=== PATIENT | male | born 1965 | race Caucasian/White ===

== ENCOUNTER 2019-02-03 16:10 | Inpatient (IN) | payer OTHER ==
[2019-02-03 22:27] LABS: ADD MAN DIFF? NO
[2019-02-03] MEDS: VANCOMYCIN 1 GM (PMX) 250 ML IVPB (22:30)
[2019-02-03 22:32] LABS: BASOPHIL # 0.1 10^3/ul (0.0-0.1); BASOPHILS % 0.6 % (0.0-2.0); EOSINOPHILS # 0.3 10^3/ul (0.0-0.5); EOSINOPHILS % 3.3 % (0.0-7.0); HEMATOCRIT 43.8 % (42.0-52.0); LYMPHOCYTES # 1.8 10^3/ul (0.8-2.9); LYMPHOCYTES % 20.8 % (15.0-51.0); MEAN CORPUSCULAR HEMOGLOBIN 28.2 pg (29.0-33.0); MEAN CORPUSCULAR VOLUME 88.1 fl (82.0-101.0); MEAN PLATELET VOLUME 10.7 fl (7.4-10.4); MONOCYTE # 0.8 10^3/ul (0.3-0.9); MONOCYTES % 9.2 % (0.0-11.0); NEUTROPHIL # 5.6 10^3/ul (1.6-7.5); NEUTROPHILS % 64.9 % (39.0-77.0); PLATELET COUNT 196 10^3/UL (140-415); RED BLOOD COUNT 4.97 10^6/ul (4.70-6.10); RED CELL DISTRIBUTION WIDTH 13.4 % (11.5-14.5)
[2019-02-03 22:32] LABS: WHITE BLOOD COUNT 8.6 10^3/ul (4.8-10.8)
[2019-02-03] MEDS: CEFEPIME 2GM/50 ML (PMX) 50 ML IVPB (22:48)
[2019-02-03] MEDS: SODIUM CHLORIDE 0.9% 1L BAG IV* (22:48)
[2019-02-03 22:52] LABS: LACTIC ACID 1.3 mmol/L (0.5-2.0)
[2019-02-03 22:53] LABS: ANION GAP 14 (5-13); BLOOD UREA NITROGEN 26 mg/dl (7-20); CALCIUM 9.9 mg/dl (8.4-10.2); CARBON DIOXIDE 26 mmol/L (21-31); CHLORIDE 101 mmol/L (97-110); CREATININE 0.99 mg/dl (0.61-1.24); Estimated GFR > 60 mL/min (>60); GLUCOSE 121 mg/dl (70-220); POTASSIUM 4.1 mmol/L (3.5-5.1); SODIUM 141 mmol/L (135-144)
[2019-02-03] MEDS ORDERED: ACETAMINOPHEN 325 MG TAB PO (23:00)
[2019-02-03] MEDS ORDERED: ONDANSETRON 4 MG INJ IV (23:00)
[2019-02-03 23:09] LABS: C-REACTIVE PROTEIN 2.1 mg/dl (0.0-0.9)
[2019-02-03 23:35] LABS: ERYTHROCYTE SEDIMENTATION RATE 20 mm/Hr (0-20)
[2019-02-04] MEDS ORDERED: HYDROCODONE/APAP (5/325) TAB PO ×2
[2019-02-04] MEDS ORDERED: NACL 0.9% 3 ML SYG IV
[2019-02-04 02:25] LABS: LACTIC ACID 0.8 mmol/L (0.5-2.0)
[2019-02-04 06:05] LABS: ADD MAN DIFF? NO
[2019-02-04 06:12] LABS: WHITE BLOOD COUNT 8.2 10^3/ul (4.8-10.8)
[2019-02-04 06:12] LABS: BASOPHILS % 0.4 % (0.0-2.0); EOSINOPHILS # 0.4 10^3/ul (0.0-0.5); EOSINOPHILS % 4.6 % (0.0-7.0); HEMATOCRIT 39.6 % (42.0-52.0); HEMOGLOBIN 12.7 g/dl (14.0-18.0); LYMPHOCYTES # 1.7 10^3/ul (0.8-2.9); LYMPHOCYTES % 20.1 % (15.0-51.0); MEAN CORPUSCULAR HEMOGLOBIN 28.5 pg (29.0-33.0); MEAN CORPUSCULAR HGB CONC 32.1 g/dl (32.0-37.0); MEAN PLATELET VOLUME 10.6 fl (7.4-10.4); MONOCYTE # 0.8 10^3/ul (0.3-0.9); NEUTROPHIL # 5.2 10^3/ul (1.6-7.5); NEUTROPHILS % 63.7 % (39.0-77.0); PLATELET COUNT 172 10^3/UL (140-415); RED BLOOD COUNT 4.45 10^6/ul (4.70-6.10); RED CELL DISTRIBUTION WIDTH 13.5 % (11.5-14.5)
[2019-02-04 06:56] LABS: HEMOGLOBIN A1C 6.1 % (0-5.9)
[2019-02-04 07:41] LABS: ALANINE AMINOTRANSFERASE 17 IU/L (13-69); ALBUMIN 3.6 g/dl (3.3-4.9); ALBUMIN/GLOBULIN RATIO 1.24; ALKALINE PHOSPHATASE 55 IU/L (42-121); ANION GAP 9 (5-13); ASPARTATE AMINO TRANSFERASE 21 IU/L (15-46); BILIRUBIN,INDIRECT 0.6 mg/dl (0-1.1); BILIRUBIN,TOTAL 0.6 mg/dl (0.2-1.3); BLOOD UREA NITROGEN 25 mg/dl (7-20); CALCIUM 8.8 mg/dl (8.4-10.2); CARBON DIOXIDE 25 mmol/L (21-31); CHLORIDE 107 mmol/L (97-110); CHOL/HDL RATIO 4.6 RATIO; CHOLESTEROL 153 mg/dl (100-200); CREATININE 0.97 mg/dl (0.61-1.24); Estimated GFR > 60 mL/min (>60); GLUCOSE 115 mg/dl (70-220); HDL CHOLESTEROL 33 mg/dl (28-71); LDL CHOLESTEROL,CALCULATED 104 mg/dl; MAGNESIUM 2.1 mg/dl (1.7-2.5); PHOSPHORUS 3.7 mg/dl (2.5-4.9); POTASSIUM 4.2 mmol/L (3.5-5.1); SODIUM 141 mmol/L (135-144); TOTAL PROTEIN 6.5 g/dl (6.1-8.1); TRIGLYCERIDES 82 mg/dl (0-149)
[2019-02-04] MEDS: ZINC SULFATE 220 MG CAP PO (08:20)
[2019-02-04] MEDS: ASPIRIN (EC) 81 MG TAB PO (08:20)
[2019-02-04] MEDS: SERTRALINE 50 MG TAB PO (08:20)
[2019-02-04] MEDS: HEPARIN 5,000 UNIT/1 ML VIAL SC (08:20)
[2019-02-04] MEDS: LISINOPRIL 20 MG TAB PO (08:20)
[2019-02-04] MEDS: CHOLECALCIFEROL 1,000 UNIT TAB PO (08:20)
[2019-02-04] MEDS: FUROSEMIDE 20 MG TAB PO (08:21)
[2019-02-04] MEDS: POTASSIUM CHLORIDE (SR) 8 MEQ CAP PO (09:17)
[2019-02-04] MEDS ORDERED: VANCOMYCIN IV PER PHARMACY XX (09:30)
[2019-02-04] MEDS: CEFEPIME 1GM/50 ML (PMX) 50 ML IVPB ×2 (10:07→20:46)
[2019-02-04] MEDS: VANCOMYCIN HCL 2 GM in SOD CHLORIDE 0.9% 500 ML IVPB (12:03)
[2019-02-04] MEDS: APIXABAN 5 MG TABLET PO (20:46)
[2019-02-05] MEDS: VANCOMYCIN HCL 1.5 GM in SOD CHLORIDE 0.9% 250 ML IVPB ×2 (00:07→12:29)
[2019-02-05 05:56] LABS: ADD MAN DIFF? NO
[2019-02-05 06:03] LABS: BASOPHIL # 0.1 10^3/ul (0.0-0.1); BASOPHILS % 0.7 % (0.0-2.0); EOSINOPHILS # 0.5 10^3/ul (0.0-0.5); EOSINOPHILS % 6.3 % (0.0-7.0); HEMATOCRIT 41.2 % (42.0-52.0); HEMOGLOBIN 13.2 g/dl (14.0-18.0); LYMPHOCYTES # 1.8 10^3/ul (0.8-2.9); LYMPHOCYTES % 23.8 % (15.0-51.0); MEAN CORPUSCULAR HEMOGLOBIN 28.5 pg (29.0-33.0); MEAN PLATELET VOLUME 10.9 fl (7.4-10.4); MONOCYTE # 0.6 10^3/ul (0.3-0.9); MONOCYTES % 8.4 % (0.0-11.0); NEUTROPHIL # 4.5 10^3/ul (1.6-7.5); NEUTROPHILS % 59.9 % (39.0-77.0); PLATELET COUNT 176 10^3/UL (140-415); RED BLOOD COUNT 4.63 10^6/ul (4.70-6.10); RED CELL DISTRIBUTION WIDTH 13.5 % (11.5-14.5)
[2019-02-05 06:03] LABS: WHITE BLOOD COUNT 7.6 10^3/ul (4.8-10.8)
[2019-02-05 06:20] LABS: ANION GAP 9 (5-13); BLOOD UREA NITROGEN 21 mg/dl (7-20); CALCIUM 9.3 mg/dl (8.4-10.2); CARBON DIOXIDE 26 mmol/L (21-31); CHLORIDE 107 mmol/L (97-110); CREATININE 0.92 mg/dl (0.61-1.24); Estimated GFR > 60 mL/min (>60); GLUCOSE 102 mg/dl (70-220); POTASSIUM 4.4 mmol/L (3.5-5.1); SODIUM 142 mmol/L (135-144)
[2019-02-05] MEDS: SERTRALINE 50 MG TAB PO (09:03)
[2019-02-05] MEDS: ASPIRIN (EC) 81 MG TAB PO (09:03)
[2019-02-05] MEDS: ZINC SULFATE 220 MG CAP PO (09:03)
[2019-02-05] MEDS: CHOLECALCIFEROL 1,000 UNIT TAB PO (09:03)
[2019-02-05] MEDS: APIXABAN 5 MG TABLET PO ×2 (09:03→21:22)
[2019-02-05] MEDS: LISINOPRIL 20 MG TAB PO (09:04)
[2019-02-05] MEDS: POTASSIUM CHLORIDE (SR) 8 MEQ CAP PO (09:04)
[2019-02-05] MEDS: FUROSEMIDE 20 MG TAB PO (09:04)
[2019-02-05] MEDS: CEFEPIME 1GM/50 ML (PMX) 50 ML IVPB ×2 (10:57→21:22)
[2019-02-05] MEDS: ONDANSETRON 4 MG INJ IV (12:32)
[2019-02-05] MEDS: ACETAMINOPHEN 325 MG TAB PO (22:17)
[2019-02-06] MEDS: VANCOMYCIN HCL 1.5 GM in SOD CHLORIDE 0.9% 250 ML IVPB ×2 (00:35→11:49)
[2019-02-06] MEDS: ONDANSETRON 4 MG INJ IV ×2 (00:38→11:52)
[2019-02-06] MEDS: CEFEPIME 1GM/50 ML (PMX) 50 ML IVPB (08:29)
[2019-02-06] MEDS: APIXABAN 5 MG TABLET PO (08:29)
[2019-02-06] MEDS: ZINC SULFATE 220 MG CAP PO (08:29)
[2019-02-06] MEDS: CHOLECALCIFEROL 1,000 UNIT TAB PO (08:29)
[2019-02-06] MEDS: ASPIRIN (EC) 81 MG TAB PO (08:30)
[2019-02-06] MEDS: FUROSEMIDE 20 MG TAB PO (08:31)
[2019-02-06] MEDS: POTASSIUM CHLORIDE (SR) 8 MEQ CAP PO (08:31)
[2019-02-06] MEDS: SERTRALINE 50 MG TAB PO (08:32)
[2019-02-06] MEDS: LISINOPRIL 20 MG TAB PO (08:32)
== END 2019-02-06 17:40 | disposition home health service (06) | DRG 603 ==
LOC: PP2 22:59 → E/R 16:10
DX: L03.115 Cellulitis of right lower limb (principal); Z68.42 Body mass index [BMI] 45.0-49.9, adult; I82.431 Acute embolism and thrombosis of right popliteal vein; E66.01 Morbid (severe) obesity due to excess calories; L97.519 Non-pressure chronic ulcer of other part of right foot with unspecified severity; I87.2 Venous insufficiency (chronic) (peripheral); M1A.9XX0 Chronic gout, unspecified, without tophus (tophi); I10 Essential (primary) hypertension; F32.9 Major depressive disorder, single episode, unspecified; F41.9 Anxiety disorder, unspecified; Z79.82 Long term (current) use of aspirin
CPT/HCPCS: 36415; 80048; 80053; 80061; 80202; 83036; 83605; 83735; 84100; 85025; 85651; 86140; 87040; 93005; 93971; 96374; 96375; 99285-25

== ENCOUNTER 2019-02-25 19:22 | Emergency (ER) | payer OTHER ==
[2019-02-25 20:20] LABS: ADD MAN DIFF? NO
[2019-02-25 20:22] LABS: BASOPHILS % 0.5 % (0.0-2.0); EOSINOPHILS # 0.4 10^3/ul (0.0-0.5); EOSINOPHILS % 5.4 % (0.0-7.0); HEMATOCRIT 41.4 % (42.0-52.0); HEMOGLOBIN 13.3 g/dl (14.0-18.0); LYMPHOCYTES # 1.5 10^3/ul (0.8-2.9); LYMPHOCYTES % 19.4 % (15.0-51.0); MEAN CORPUSCULAR HEMOGLOBIN 28.6 pg (29.0-33.0); MEAN CORPUSCULAR HGB CONC 32.1 g/dl (32.0-37.0); MEAN PLATELET VOLUME 10.9 fl (7.4-10.4); MONOCYTE # 0.8 10^3/ul (0.3-0.9); MONOCYTES % 9.7 % (0.0-11.0); NEUTROPHILS % 64.2 % (39.0-77.0); PLATELET COUNT 177 10^3/UL (140-415); RED BLOOD COUNT 4.65 10^6/ul (4.70-6.10); RED CELL DISTRIBUTION WIDTH 13.5 % (11.5-14.5)
[2019-02-25 20:22] LABS: WHITE BLOOD COUNT 7.8 10^3/ul (4.8-10.8)
[2019-02-25 20:33] LABS: ALANINE AMINOTRANSFERASE 23 IU/L (13-69); ALBUMIN 4.5 g/dl (3.3-4.9); ALBUMIN/GLOBULIN RATIO 1.25; ALKALINE PHOSPHATASE 76 IU/L (42-121); ANION GAP 9 (5-13); ASPARTATE AMINO TRANSFERASE 34 IU/L (15-46); BILIRUBIN,INDIRECT 0.5 mg/dl (0-1.1); BILIRUBIN,TOTAL 0.5 mg/dl (0.2-1.3); BLOOD UREA NITROGEN 21 mg/dl (7-20); CALCIUM 9.8 mg/dl (8.4-10.2); CARBON DIOXIDE 27 mmol/L (21-31); CHLORIDE 105 mmol/L (97-110); CREATININE 0.88 mg/dl (0.61-1.24); Estimated GFR > 60 mL/min (>60); GLUCOSE 109 mg/dl (70-220); POTASSIUM 4.4 mmol/L (3.5-5.1); SODIUM 141 mmol/L (135-144); TOTAL PROTEIN 8.1 g/dl (6.1-8.1)
== END 2019-02-25 22:14 | disposition home or self-care (01) ==
LOC: E/R 19:22
DX: L03.115 Cellulitis of right lower limb (principal); I10 Essential (primary) hypertension; Z79.01 Long term (current) use of anticoagulants
CPT/HCPCS: 36415; 80053; 83605; 85025; 93971; 99284-25